=== PATIENT | female | born 1985 | race Caucasian/White ===

== ENCOUNTER 2019-03-07 08:41 | Emergency (ER) | payer OTHER, MEDICAID ==
[~2019-03-07] VITALS: Ht 165.1 cm; Wt 90.7 kg
[2019-03-07] MEDS ORDERED: CLARITIN10 MG PO (09:05)
[2019-03-07] MEDS ORDERED: KEPPRA 500 MG500 M1 PO (09:05)
[2019-03-07] MEDS ORDERED: PROTONIX40 M1 PO (09:06)
[2019-03-07] MEDS ORDERED: ANTIVERT25 MG PO (09:06)
[2019-03-07] MEDS ORDERED: TOPROL XL25 MG PO (09:06)
[2019-03-07] MEDS ORDERED: ASPIR 8181 M1 PO (09:06)
[2019-03-07] MEDS ORDERED: KEFLEX500 M1 PO ×2 (11:27→11:33)
[2019-03-07] MEDS ORDERED: HYDROCODONE-AP1 EAC6 PO ×2 (11:27→11:33)
[2019-03-07 11:52] VITALS: BP 123/76
== END 2019-03-07 11:53 | disposition home or self-care (01) ==
LOC: M.ERS 08:41
DX: S62.663A Nondisplaced fracture of distal phalanx of left middle finger, initial encounter for closed fracture (principal); S61.313A Laceration without foreign body of left middle finger with damage to nail, initial encounter; W23.0XXA Caught, crushed, jammed, or pinched between moving objects, initial encounter; Y93.89 Activity, other specified; Y92.89 Other specified places as the place of occurrence of the external cause; Y99.8 Other external cause status

== ENCOUNTER 2021-02-27 18:04 | Emergency (ER) | payer OTHER, MEDICAID ==
[~2021-02-27] VITALS: Ht 167.6 cm; Wt 81.7 kg
[~2021-02-27 18:04] MED LIST: ANTIVERT25 MG PO; ASPIR 8181 M1 PO; CLARITIN10 MG PO; HYDROCODONE-AP1 EAC6 PO; KEFLEX500 M1 PO; KEPPRA 500 MG500 M1 PO; PROTONIX40 M1 PO; TOPROL XL25 MG PO
[2021-02-27] MEDS ORDERED: SEROQUEL 100 M100 M1 PO (18:22)
[2021-02-27] MEDS ORDERED: TOPROL XL50 MG (18:22)
[2021-02-27] MEDS ORDERED: PROTONIX40 M2 PO (18:23)
[2021-02-27] MEDS ORDERED: IBU800 MG PO (18:23)
[2021-02-27] MEDS ORDERED: NORCO5 PO (19:09)
[2021-02-27 19:22] VITALS: BP 150/92
== END 2021-02-27 19:23 | disposition home or self-care (01) ==
LOC: M.ERS 18:04
DX: S69.81XA Other specified injuries of right wrist, hand and finger(s), initial encounter (principal); Z88.1 Allergy status to other antibiotic agents; Z88.0 Allergy status to penicillin; Z88.2 Allergy status to sulfonamides; W01.0XXA Fall on same level from slipping, tripping and stumbling without subsequent striking against object, initial encounter; Y93.89 Activity, other specified; Y92.89 Other specified places as the place of occurrence of the external cause; Y99.8 Other external cause status